=== PATIENT | female | born 1995 | race Caucasian/White ===

== ENCOUNTER 2021-06-09 19:05 | Inpatient (IN) | payer BC, SELFPAY ==
[2021-06-09 19:37] VITALS: BP 141/99; PULSE 93; TEMP 36.7
[2021-06-09 19:46] VITALS: BMI 49.7
[2021-06-09] MEDS: Lactated Ringers 1,000 ML 50 ML IV (20:24)
[2021-06-09 20:25] LABS: Absolute Lymphocyte Count 2.71 X10^3/uL (0.83-4.51); Absolute Neutrophil Count 8.5 X10^3/uL (2.0-7.7); Basophil# 0.01 X10^3/uL; Basophil% 0.1 % (0-1); Eosinophils% 0.8 % (0-5); Hematocrit 38.2 % (37-47); Hemoglobin 12.8 g/dL (12.0-15.0); Lymphocyte # 2.71 X10^3/ul (0.83-4.51); Lymphocyte % 22.6 % (19-41); Mean Corp Hgb Conc 33.5 g/dL (32-36); Mean Corpuscular Volume 86.4 fL (81-99); Mean Platelet Vol. 10.4 fl (6.2-12.0); Monocyte# 0.62 X10^3/uL; Monocyte% 5.2 % (0-10); NRBC Flagged by Analyzer 0 % (0-5); Neutrophil # 8.49 X10^3/uL (2.7-7.7); Neutrophil % 70.9 % (47-70); Platelet Count 308 K/mm3 (150-450); RBC Distribution Width CV 13.5 % (11.6-14.6); RBC Distribution Width SD 42.5 fl (35.1-43.9); Red Blood Count 4.42 M/mm3 (4.2-5.4)
[2021-06-09] MEDS: miSOPROStol 25 MCG TABLET VAGINAL (20:49)
[2021-06-09 21:11] VITALS: TEMP 36.6
[2021-06-09 21:13] VITALS: BP 130/76; PULSE 81
[2021-06-10] VITALS (27 sets, daily range): BP systolic 105–155; BP diastolic 48–90; PULSE 18–105; RESP 16–18; TEMP 35.9–36.7; O2SAT 94–97
[2021-06-10] MEDS: miSOPROStol 50 MCG TABLET VAGINAL (00:51)
[2021-06-10] MEDS: Oxytocin 30 units/NS 500 ml 30 UNITS/500 ML IV.SOLN IV (07:05)
[2021-06-10] MEDS: 0.9% Normal Saline Single 100 ML IV.SOLN. INTRA-UTER (08:07)
--- NOTE | 2021-06-10 08:43 | PCM.HP.OB ---
HPI - General General Date of Admission: 06/09/21 HPI Narrative JODI RODRIGEZ, is a 25 F at 39w2d who presents for induction of labor due to obesity. No contractions, vaginal bleeding or leakage of fluid. complicated by BMI 46 and LGA . Also possible underlying chronic HTN. GBS positive. Maternal Data Information DEEPA Calculator Estimated Delivery Date Method Current WG Current Estimate 06/14/21 Manual 39w 3d PFSH PFSH Medical History no medical history Home Medications PNV,calcium [id number] acid [ Vitamin Plus Low Iron] 1 tab PO DAILY 06/09/21 [History Last Taken 06/07/21 16:00 1 tab] aspirin 1 PO DAILY 06/09/21 [History Last Taken 06/07/21 16:00 1 tab] Allergy/AdvReac Type Severity Reaction Status Date / Time No Known Allergies Allergy Verified 06/09/21 19:48 Family History no significant family his Surgical History no surgical history Social History Smoking Status: Never smoker History Elective abortions Hx Para 0 Spontaneous abortions Hx # Term Pregnancies Ectopic pregnancies Hx # Pregnancies Multiple births # of living children NST FHR Rate Baby A Variability:: Minimal Accelerations:: 15 x 15 Decelerations:: None FHR Category:: Category II Uterine Activity:: Irregular Vital Signs Vital Signs Vital Signs: 06/09/21 19:37 06/09/21 21:11 06/09/21 21:13 Temperature 98.0 F 97.8 F Temperature Source Temporal Temporal Pulse Rate 93 81 Blood Pressure 141/99 H 130/76 H BP Systolic 141 130 BP Diastolic 99 76 Pulse Ox 06/10/21 00:57 06/10/21 01:05 06/10/21 01:07 Temperature 97.8 F Temperature Source Temporal Pulse Rate 83 76 Blood Pressure 117/60 BP Systolic 117 BP Diastolic 60 Pulse Ox 94 06/10/21 03:33 06/10/21 03:34 06/10/21 07:23 Temperature 97.8 F 97.4 F L Temperature Source Temporal Temporal Pulse Rate 68 81 Blood Pressure 118/68 113/84 H BP Systolic 118 113 BP Diastolic 68 84 Pulse Ox 97 06/10/21 08:24 Temperature 97.1 F L Temperature Source Temporal Pulse Rate 74 Blood Pressure 129/72 H BP Systolic 129 BP Diastolic 72 Pulse Ox Weight Weight: 298 lb 11.622 oz Body Mass Index (BMI) 49.7 Physical Exam Const alert and oriented x3 General Appearance: cooperative Orientation / Consciousness: awake, oriented to person, oriented to place and oriented to time Exam Limitations: no limitations HEENT normocephalic Head and Scalp: normal to inspection, normocephalic and atraumatic Face and Sinus: normal facial exam Eyes General Eye: normal appearance of both eyes Neck full ROM Chest Chest: symmetrical chest wall rise Resp normal respiratory effort and normal air movement Auscultation: clear to auscultation bilaterally Cardio regular rate, regular rhythm, S1 normal heart sound, S2 normal heart sound, no murmurs, no rub, no gallops and no clicks GI normal to inspection, nondistended, normoactive bowel sounds and non-tender appearance of the vagina normal Narrative: 2cm/60/-1. Pittman placed transcervically. tolerated well. Bladder / Kidney Exam: no CVA tenderness Back/Spine normal ROM Extremity normal to inspection and full ROM Skin no rashes or lesions noted Neuro oriented x3, CN's II-XII intact bilaterally and moves all extremities Sensorium / Orientation: awake, alert and oriented to person Motor Exam: clonus absent Deep Tendon Reflexes: Rt Patellar (L4): 2+ and Lt Patellar (L4): 2+ Labs Labs Labs: Blood Type O POSITIVE Antibody Screen NEGATIVE Hct 37.5 % (37-47) Hgb 12.7 g/dL (12.0-15.0) Rhogam given: No GBS positive RPR non reactive Hep C negative HBsAG negative HIV non reactive Rubella Immune O positive, antibody screen negative GC/CT negative Assessment & Plan (1) Elective induction of labor planned: (2) Obesity affecting : (3) LGA (large for gestational age) fetus affecting management of mother: (4) Positive GBS test: PLAN: 1) Admit to labor and delivery 2) Received Cytotec last night. Pitocin started this am. Pittman placed for cervical ripening. 3) Routine labs 4) Continuos EFM 5) Pain management upon request 6) collaborative physician and notified of patient status
[2021-06-10] MEDS: Lactated Ringers 500 ML 999 ML IV (10:57)
[2021-06-10] MEDS: Lactated Ringers 1,000 ML 999 ML IV (11:15)
[2021-06-10 11:17] LABS: Hematocrit 37.5 % (37-47); Hemoglobin 12.7 g/dL (12.0-15.0); Mean Corp Hgb Conc 33.9 g/dL (32-36); Mean Corpuscular Hgb 29.5 pg (27.0-32.0); Mean Platelet Vol. 9.8 fl (6.2-12.0); Platelet Count 267 K/mm3 (150-450); RBC Distribution Width CV 13.6 % (11.6-14.6); RBC Distribution Width SD 42.7 fl (35.1-43.9); Red Blood Count 4.31 M/mm3 (4.2-5.4); White Blood Count 9.4 K/mm3 (4.4-11.0)
[2021-06-10] MEDS: Penicillin G 3,000,000 Units 50 ML 100 UNITS IV (11:39)
[2021-06-10 11:43] LABS: AST(SGOT) 25 U/L (15-37); Alanine Aminotransfer ALT/SGPT 26 U/L (13-56); Creatinine, Serum 0.64 mg/dL (0.55-1.02); EST Glomerular Filtration Rate 120 mL/min (>60); Est Glom Filt Rate - Afr Amer 145 mL/min (>60); Estimated Creatinine Clearance 120.91 ml/min; Uric Acid 5.2 mg/dL (2.6-6.0)
--- NOTE | 2021-06-10 12:07 | PCM.PN.BLA ---
Progress Note At bedside to discuss plan of care with patient. FHT reassuring currently with mod variability and accels. Has had two prolonged decelerations that have lasted several minutes in length, and pitocin is currently off. Discussed intolerance to labor and inability to titrate pitocin, and recommend section at this time. Discussed r/b/a to a section with patient and her who was present over the phone. She desires to proceed with a section.
[2021-06-10 12:14] LABS: Protein, Urine (Random) 8.6 mg/dL (<11.9); Protein:Creat Ratio 437 mg/g CRE (0-200)
[2021-06-10] MEDS: Acetaminophen 500 MG Tablet PO (12:24)
[2021-06-10] MEDS: Sodium Citrate/Citric Acid 30 ML UDC PO (12:24)
--- NOTE | 2021-06-10 14:05 | PCM.OPRPT ---
Problems Associated Problem List Diagnoses (1) Obesity: (2) Preeclampsia: (3) Elective induction of labor planned: (4) Non-reassuring heart rate or rhythm affecting management of fetus: Report of Operation Date of Procedure: 06/10/21 Pre-Operative Diagnosis: 39 week gestation, single IUP, non reassuring heart tracing, induction of labor planned, obesity, pre eclampsia Post-Operative Diagnosis: As above Surgery/Procedure Performed:: PLTCS via pfannenstiel incision Description of Surgical Findings:: Indications: The patient presented for a 39-week induction of labor given obesity and preeclampsia. Induction was started with Cytotec, followed by an intracervical Pittman and Pitocin. Once on Pitocin she had 2 episodes of bradycardia requiring Pitocin to be shut off. Given intolerance to labor with a nonreassuring heart tracing with Pitocin, recommended primary section. Patient desired to proceed. Findings: Viable male infant in cephalic presentation. Normal-appearing placenta with a three-vessel cord. Normal-appearing uterus and bilateral adnexa. Clear fluid. Surgeon: Brianna Epstein skein drier: Sveta Type of Anesthesia: Spinal Special Medications: None Specimen's removed: Placenta Drains: Pittman Fluids Replaced: See anesthesia record Description of Procedure: Patient was taken to the operating room where spinal anesthesia was found to be adequate. She was prepped and draped in the dorsal position with a leftward tilt. A Pfannenstiel skin incision was made with a scalpel and this was carried down to the underlying layer of fascia. The fascia was incised in the midline and extended laterally using Baldwin scissors. The fascia was dissected off of the rectus muscles using a combination of sharp and blunt dissection. The rectus muscles were in the midline. The peritoneum was entered bluntly with good visualization of the bladder. The peritoneal incision was extended bluntly. A bladder blade was inserted. A low transverse incision was made on the uterus with a scalpel. The uterine incision was extended bluntly. Membranes were ruptured for clear fluid and the head was flexed and brought to the hysterotomy. A viable male was delivered easily without any force or delay through the hysterotomy. The cord was clamped and cut immediately and the was handed off to the waiting nursery staff. The was vigorous upon delivery. The uterus was exteriorized. The placenta was removed with manual extraction. The uterus was cleared of all clot debris. Using 1-0 Vicryl the hysterotomy was closed in a 2 layer fashion. A 1-0 Vicryl was used for the first layer in a running locked fashion. The second layer was an imbricating layer. The uterus was placed back into the abdomen. The hysterotomy was hemostatic. Deanna was placed over the hysterotomy and lower uterine segment. The peritoneum was then closed with 3-0 Vicryl in a running fashion. The rectus muscles were noted to be hemostatic. The fascia was closed with strata fix in a running fashion. The subcutaneous space was irrigated and made hemostatic. The subcutaneous space was reapproximated with 3-0 Vicryl in a running fashion. The skin was closed with 4-0 Monocryl in a subcuticular fashion. A dressing was placed. Instrument, sponge, needle counts were correct. The patient was taken to the recovery room in stable condition. The assistant women's basketball coach was present for the entire case: draping patient, delivery of , and closure. Grafts/Implants Used: None Complications None Admit VTE Documentation VTE Present on Admission: No VTE Mechan Device Prophylaxis: SCD's
[2021-06-10] MEDS: Oxytocin 30 units/NS 500 ml 30 UNITS/500 ML IV.SOLN 167 UNITS IV (14:45)
[2021-06-10] MEDS: Ketorolac 30 MG/ML Syringe IV ×2 (15:18→21:33)
[2021-06-10] MEDS: 0.9% Saline Lock 10 ML Syringe IV (15:19)
--- NOTE | 2021-06-10 16:58 | NURSING ---
Report given to Danielle ANTOINE, taking over pt care at this time.
[2021-06-10] MEDS: oxyCODONE 5 MG Tablet PO (17:37)
[2021-06-10] MEDS: Acetaminophen 500 MG Tablet 1000 MG PO (18:33)
[2021-06-10] MEDS: Lactated Ringers 1,000 ML 100 ML IV (18:34)
[2021-06-11] MEDS: Acetaminophen 500 MG Tablet 1000 MG PO ×4 (00:11→18:04)
[2021-06-11] MEDS: Enoxaparin 40 MG/0.4 ML Syringe SC (01:45)
[2021-06-11] MEDS: Ketorolac 30 MG/ML Syringe IV ×2 (03:02→09:52)
[2021-06-11] MEDS: 0.9% Saline Lock 10 ML Syringe IV (03:02)
[2021-06-11 03:07] VITALS: BP 118/48; PULSE 82; RESP 16; TEMP 36.1; O2SAT 96
--- NOTE | 2021-06-11 06:04 | PN.OBGYN_ITS ---
Subjective Subjective Doing well per patient and nursing staff. Ambulating and taking PO without difficulty. Pittman out and voiding. Not passing flatus yet. Pain controlled. , services for assistance. Denies headache, visual changes, chest pain, shortness of breath, leg pain or increased bleeding. Lochia normal. Objective Data Objective Data Vital Signs: Vital Signs Temp Pulse Resp BP Pulse Ox 97.0 F L 82 16 118/48 L 96 06/11/21 03:07 06/11/21 03:07 06/11/21 03:07 06/11/21 03:07 06/11/21 03:07 Oxygen Delivery Method Room Air Weight: 298 lb 11.622 oz Body Mass Index (BMI) 49.7 Intake & Output: Intake and Output for Last 24 Hours 06/09/21 06/10/21 06/11/21 23:59 23:59 23:59 Intake Total 4409.04 / 4409.04 Output Total 2950 / 2950 1000 / 1000 Balance 1459.04 / 1459.04 -1000 / -1000 Lab / Micro Data Result Diagrams: 06/11/21 06:26 06/10/21 11:10 Labs: Laboratory Results - last 24 hr 06/10/21 11:10: WBC 9.4, RBC 4.31, Hgb 12.7, Hct 37.5, MCV 87.0, MCH 29.5, MCHC 33.9, RDW Std Deviation 42.7, RDW Coeff of Arsalan 13.6, Plt Count 267, MPV 9.8 06/10/21 11:10: Creatinine 0.64, Estim Creat Clear Calc 120.91, Est GFR (MDRD) Af Amer 145, Est GFR (MDRD) Non-Af 120, Uric Acid 5.2, AST 25, ALT 26 06/10/21 11:45: U Random Total Protein 8.6, Urine Creatinine 19.70, P rotein/Creatinin Ratio 437 H Micro: Microbiology 06/09/21 19:55 Nasal Secretion SARS-CoV-2 Antigen (Rapid) - Final ROS Constitutional Constitutional: Reports systems reviewed and no addt'l complaints, except as documented; Denies headache(s) Eyes Eyes: Denies acute decrease in peripheral vision, blurry vision or change in vision ENT HEENT: Reports systems reviewed and no addt'l complaints, except as documented Cardiovascular Cardiovascular: Denies chest pain or dizziness Respiratory/Chest Respiratory/Chest: Denies cough, dyspnea, dyspnea on exertion, shortness of breath at rest or shortness of breath with exertion Gastrointestinal Gastrointestinal: Denies abdominal pain, diarrhea, nausea or vomiting Genitourinary Genitourinary: Denies abdominal discomfort Musculoskeletal Musculoskeletal: Denies limited range of motion Integumentary Integumentary: Reports systems reviewed and no addt'l complaints, except as documented Neurologic Neurologic: Reports systems reviewed and no addt'l complaints, except as documented Psychiatric Psychiatric: Reports systems reviewed and no addt'l complaints, except as documented Endocrine Endocrinology: Reports systems reviewed and no addt'l complaints, except as documented Hematologic/Lymphatic Hematologic/Lymphatic: Reports systems reviewed and no addt'l complaints, except as documented Allergic/Immunologic Allergic/Immunologic: Reports systems reviewed and no addt'l complaints, except as documented Physical Exam Const alert and oriented x3 General Appearance: cooperative Orientation / Consciousness: awake, oriented to person, oriented to place and oriented to time Exam Limitations: no limitations HEENT normocephalic Head and Scalp: normal to inspection, normocephalic and atraumatic Face and Sinus: normal facial exam Eyes General Eye: normal appearance of both eyes Neck full ROM Chest Chest: symmetrical chest wall rise Resp normal respiratory effort and normal air movement Auscultation: clear to auscultation bilaterally Cardio regular rate, regular rhythm, S1 normal heart sound, S2 normal heart sound, no murmurs, no rub, no gallops and no clicks GI non-tender GI Narrative: dressing dry and intact. Fundus firm 1 below U Auscultation: hypoactive bowel sounds appearance of the vagina normal Bladder / Kidney Exam: no CVA tenderness Back/Spine normal ROM Extremity normal to inspection and full ROM Skin no rashes or lesions noted Neuro oriented x3, CN's II-XII intact bilaterally and moves all extremities Sensorium / Orientation: awake, alert and oriented to person Motor Exam: clonus absent Deep Tendon Reflexes: Rt Patellar (L4): 2+ and Lt Patellar (L4): 2+ Assessment & Plan (1) Status post primary low transverse section: (2) Obesity: (3) Preeclampsia: PLAN: 1) Routine PP care 2) Pittman out and voiding 3) Pain management 4) I&Os 5) Ambulation 6) BP stable 7) CBC ordered 8) Plan D/C home POD #3 due to preeclampsia
[2021-06-11 06:43] LABS: Hematocrit 30.2 % (37-47); Mean Corp Hgb Conc 33.1 g/dL (32-36); Mean Corpuscular Volume 87.5 fL (81-99); Mean Platelet Vol. 10.2 fl (6.2-12.0); Platelet Count 202 K/mm3 (150-450); RBC Distribution Width CV 13.8 % (11.6-14.6); RBC Distribution Width SD 44.1 fl (35.1-43.9); Red Blood Count 3.45 M/mm3 (4.2-5.4); White Blood Count 10.5 K/mm3 (4.4-11.0)
[2021-06-11 08:19] VITALS: BP 110/49; PULSE 83; RESP 16; TEMP 36.3
[2021-06-11] MEDS: Senna/Docusate Sodium 1 Tablet PO (09:52)
[2021-06-11 11:43] VITALS: BP 96/45; PULSE 74; RESP 16; TEMP 36.5; O2SAT 97
[2021-06-11] MEDS: Ibuprofen 600 MG Tablet PO ×2 (15:02→21:17)
[2021-06-11 15:04] VITALS: BP 127/63; PULSE 76; RESP 14; TEMP 36.2; O2SAT 95
[2021-06-11] MEDS: guaiFENesin 10 ML UDC (200MG/10ML) PO (19:44)
[2021-06-11 20:55] VITALS: BP 128/72; PULSE 74; RESP 16; TEMP 36.1; O2SAT 97
[2021-06-12] MEDS: Acetaminophen 500 MG Tablet 1000 MG PO ×2 (02:23→08:24)
[2021-06-12 02:25] VITALS: BP 129/63; PULSE 80; RESP 18; TEMP 36.4; O2SAT 97
[2021-06-12] MEDS: Ibuprofen 600 MG Tablet PO (04:06)
--- NOTE | 2021-06-12 05:48 | PCM.PROGNOTE ---
Subjective Subjective patient seen at bedside, doing well. Patient reports good pain control. lochia mild. passing flatus. breast feeding well. Objective Data Objective Data Vital Signs: Vital Signs Temp Pulse Resp BP Pulse Ox 97.6 F L 80 18 129/63 H 97 06/12/21 02:25 06/12/21 02:25 06/12/21 02:25 06/12/21 02:25 06/12/21 02:25 Oxygen Delivery Method Room Air Weight: 135.5 kg Body Mass Index (BMI) 49.7 Intake & Output: Intake and Output for Last 24 Hours 06/10/21 06/11/21 06/12/21 23:59 23:59 23:59 Intake Total 4409.04 / 4409.04 Output Total 2950 / 2950 1000 / 1000 Balance 1459.04 / 1459.04 -1000 / -1000 Lab / Micro Data Result Diagrams: 06/11/21 06:26 06/10/21 11:10 Labs: Laboratory Results - last 24 hr 06/11/21 06:26: WBC 10.5, RBC 3.45 L, Hgb 10.0 L, Hct 30.2 L, MCV 87.5, MCH 29.0, MCHC 33.1, RDW Std Deviation 44.1 H, RDW Coeff of Arsalan 13.8, Plt Count 202, MPV 10.2 Micro: Microbiology 06/09/21 19:55 Nasal Secretion SARS-CoV-2 Antigen (Rapid) - Final Physical Exam Narrative dressing dry and intact Const alert and oriented x3 General Appearance: cooperative HEENT normocephalic Neck General: normal visual inspection GI soft to palpation and non-distended GI Narrative: Fundus firm Extremity normal to inspection and no calf tenderness Skin no rashes or lesions noted Neuro oriented x3 and CN's II-XII intact bilaterally Psych mental status grossly normal Assessment & Plan Assessment/Plan (1) Status post primary low transverse section: (2) Preeclampsia: QUALIFIERS: Trimester: third trimester Qualified Code(s): O14.93 - Unspecified pre-eclampsia, third trimester (3) Obesity: QUALIFIERS: Obesity type: due to excess calories Obesity classification: adult class 3 (BMI >= 40) Serious obesity comorbidity presence: unspecified whether serious comorbidity present Body mass index: BMI 45.0-49.9 Qualified Code(s): E66.01 - Morbid (severe) obesity due to excess calories; Z68.42 - Body mass index [BMI] 45.0-49.9, adult PLAN: POD#2 , Doing well Routine care pain mgmt monitor VS- BP well controlled ambulation dc home
--- NOTE | 2021-06-12 05:51 | PCM.DC ---
Discharge Instructions Diet Discharge Diet: No restrictions Activity May resume sexual activity in: 6-8 weeks Lifting Restrictions: 25 Dressing / Incision Call your doctor if your incision/area has: Continuous Slow Oozing, Sudden Increased Bleeding, Increased Pain/ Swelling, Increased Redness, Foul Smelling Discharge and Swelling at the incision site Call your doctor if you observe: Fever of 101 or Higher, Inability to urinate, Using more than 1 pad per hour and Uncontrolled pain Additional Dressing/Incision Instructions:: remove dressing at 7 days post op- if it becomes saturated prior to that time you may remove it. Let soap and water run over incision sites and dab dry. keep incision clean and dry. Follow Up Care Please Follow Up With: Angelica Aly MD When: 1-2 weeks post of incision check and again at 6 weeks post . [phone] Test Results: Test results from this visit will be discussed in further detail at your follow-up appointment, if applicable. Discharge Plan Admission Admit Date/Time: 06/09/21 19:05 Attending Provider: Brianna Epstein Discharge Orders/Prescriptions Prescriptions: New acetaminophen 500 mg Tablet 1,000 mg PO Q6H Qty: 0 RF: 0 ibuprofen 600 mg Tablet 600 mg PO Q6H Qty: 0 RF: 0 Continued Vitamin Plus Low Iron 27 mg iron- 1 mg tablet 1 tab PO DAILY RF: 0 Discontinued aspirin 81 mg tablet,chewable 1 PO DAILY RF: 0 Disposition Disposition (needs filled in before D/C Order can be placed): Home, Self Care
--- NOTE | 2021-06-12 05:54 | PCM.DC.BLA ---
Discharge Summary Date of Admission: 06/10/21 Date of Discharge: 06/12/21 Summary: Patient was admitted for elective induction of labor on June 10, 2021. Had nonreassuring heart rate tracing and was taken for a low transverse section by Dr. Brianna Epstein. The patient had an uncomplicated postoperative course. Patient discharged home on postoperative day #2 Meaningful Use Info Meaningful Use Diagnoses (Choose all that apply): None applicable Discharge Plan Admission Admit Date/Time: 06/09/21 19:05 Attending Provider: Brianna Epstein Discharge Orders/Prescriptions Prescriptions: New acetaminophen 500 mg Tablet 1,000 mg PO Q6H Qty: 0 RF: 0 ibuprofen 600 mg Tablet 600 mg PO Q6H Qty: 0 RF: 0 Continued Vitamin Plus Low Iron 27 mg iron- 1 mg tablet 1 tab PO DAILY RF: 0 Discontinued aspirin 81 mg tablet,chewable 1 PO DAILY RF: 0 Disposition Disposition (needs filled in before D/C Order can be placed): Home, Self Care
[2021-06-12] MEDS: Enoxaparin 40 MG/0.4 ML Syringe SC (08:24)
[2021-06-12] MEDS: Senna/Docusate Sodium 1 Tablet PO (08:25)
[2021-06-12 08:31] VITALS: BP 128/39; PULSE 80; RESP 16; TEMP 36.3; O2SAT 95
== END 2021-06-12 10:15 | disposition home or self-care (01) | DRG 787 ==
PROVIDERS: Advanced Practice Midwife; Obstetrics & Gynecology; Admitting Provider Obstetrics & Gynecology; Visit Provider Obstetrics & Gynecology
DX: O36.63X0 Maternal care for excessive fetal growth, third trimester, not applicable or unspecified (principal); O98.82 Other maternal infectious and parasitic diseases complicating childbirth; O14.94 Unspecified pre-eclampsia, complicating childbirth; O99.214 Obesity complicating childbirth; E66.01 Morbid (severe) obesity due to excess calories; B95.1 Streptococcus, group B, as the cause of diseases classified elsewhere; Z37.0 Single live birth; Z3A.39 39 weeks gestation of pregnancy; O76 Abnormality in fetal heart rate and rhythm complicating labor and delivery
CPT/HCPCS: 36415; 59025; 59050; 82565; 82570; 84156; 84450; 84460; 84550; 85025; 85027; 86850; 86900; 86901; 87426; 99218; 99251; J7120; A4216; G0378; G0463; J2405